=== PATIENT | male | born 1990 | race Caucasian/White ===

== ENCOUNTER 2017-02-02 21:43 | Emergency (ER) | payer OTHER ==
--- NOTE | 2017-02-02 22:41 | C.PDOC ---
History Of Present Illness 26 y/o M c no PMHx p/w episodes of dyspnea, chest pain, palpitations, hand/foot/ facial numbness that have been occurring almost daily x 2 weeks. Patient was seen in ED in [place], [place] and had negative EKG and labs and sent home. Since then , patient has seen PMD multiple times and given Xanax but symptoms have continued. Patient denies fever, chills, abdominal pain, dysuria, weakness. Time Seen by Provider: 02/02/17 22:06 Chief Complaint (Nursing): Chest Pain Past Medical History Vital Signs: Last Vital Signs Temp 99.3 F 02/02/17 21:56 Pulse 88 02/02/17 22:30 Resp 26 H 02/02/17 21:56 BP 136/78 02/02/17 21:56 Pulse Ox 98 02/02/17 22:46 - Medical History PMH: Anxiety, Asthma Family History: States: No Known Family Hx - Social History Hx Tobacco Use: No Hx Alcohol Use: Yes Hx Substance Use: No - Immunization History Hx Tetanus Toxoid Vaccination: Yes Hx Influenza Vaccination: No Hx Pneumococcal Vaccination: No Review Of Systems Except As Marked, All Systems Reviewed And Found Negative. Constitutional: Negative for: Fever Gastrointestinal: Negative for: Abdominal Pain Physical Exam - Physical Exam Appears: No Acute Distress Skin: Normal Color Head: Atraumatic, Normacephalic Eye(s): bilateral: PERRL Oral Mucosa: Moist Throat: No Erythema, No Exudate Neck: No Midline Cervical Tenderness, Supple Chest: No Deformity, No Tenderness Cardiovascular: Rhythm Regular, Other (tachycardic) Respiratory: Normal Breath Sounds Gastrointestinal/Abdominal: Soft, No Tenderness Back: No CVA Tenderness, No Vertebral Tenderness Extremity: No Tenderness, No Swelling Pulses: Left Radial: Normal, Right Radial: Normal Neurological/Psych: Normal Speech, Normal Cognition ED Course And Treatment - Laboratory Results Result Diagrams: 02/02/17 22:55 02/02/17 22:55 O2 Sat by Pulse Oximetry: 98 Medical Decision Making Medical Decision Making: Most likely differential diagnosis is anxiety attacks. Patient has been evaluated multiple times; therefore will evaluate further with labs, imaging, rule out PE, drug screen. I informed patient that in absence of any emergently life threatening findings today, patient will require follow up with Dr. Jackson for further management. IMPRESSION: No aneurysm, dissection or pulmonary embolus, no focal pneumonia Patient in ED in no distress and with normal vital signs. Will discharge home, f /u Dr. Jackson. Disposition - Disposition Disposition: HOME/ ROUTINE Disposition Time: 00:36 Condition: STABLE Instructions: Panic Attack (ED) Forms: [facility] ([place]) - Clinical Impression Clinical Impression: Panic attack
[2017-02-02 22:58] LABS: BASO % 0.3 % (0.0-2.0); EOS # 0.1 K/uL (0.0-0.7); EOS % 0.7 % (0.0-4.0); HEMOGLOBIN 15.8 g/dL (12.0-18.0); LYMPH # 3.2 K/uL (1.0-4.3); LYMPH % 30.9 % (20.0-40.0); MEAN CELL VOLUME 85.8 fL (80.0-94.0); MEAN CORPUSCULAR HEMOGLOBIN 29.9 pg (27.0-31.0); MEAN CORPUSCULAR HGB CONC 34.8 g/dL (33.0-37.0); MEAN PLATELET VOLUME 9.2 fL (7.2-11.7); MONO # 0.5 K/uL (0.0-0.8); MONO % 5.1 % (0.0-10.0); NEUT # 6.4 K/uL (1.8-7.0); NRBC % 0.1 % (0.0-2.0); RBC 5.28 Mil/uL (4.40-5.90); RED CELL DISTRIBUTION WIDTH 12.8 % (11.5-14.5); WHITE BLOOD COUNT 10.2 K/uL (4.8-10.8)
[2017-02-02] MEDS ORDERED: Iodixanol 320 MG/ML 100 ML BOTTLE IV ONE (23:06)
[2017-02-02 23:10] LABS: ALBUMIN 4.6 g/dL (3.5-5.0); ALT/SGPT 45 U/L (21-72); AST/SGOT 31 U/L (17-59); BLOOD UREA NITROGEN 13 mg/dL (9-20); CALCIUM 9.2 mg/dl (8.6-10.4); GFR AFRICAN-AMERICAN > 60; GFR NON-AFRICAN AMERICAN > 60
[2017-02-02 23:11] LABS: ALB/GLOB RATIO 1.2 (1.0-2.1)
[2017-02-02 23:48] LABS: BARBITURATES, UR NEGATIVE (NEGATIVE); BENZODIAZEPINES, UR NEGATIVE (NEGATIVE); OPIATES, UR NEGATIVE (NEGATIVE); PHENCYCLIDINE, UR NEGATIVE (NEGATIVE)
--- NOTE | 2017-02-03 00:36 | CT ---
EXAM: CT Angiography Chest With Intravenous Contrast EXAM DATE/TIME: 02/02/2017 10:35 PM CLINICAL HISTORY: 26 years old, male; Pain; Chest pain; Additional info: Dyspnea, chest pain, palpitations TECHNIQUE: Axial computed tomographic angiography images of the chest with intravenous contrast using pulmonary embolism protocol. All CT scans at this facility use one or more dose reduction techniques, viz.: automated exposure control; ma/kV adjustment per patient size (including targeted exams where dose is matched to indication; i.e. head); or iterative reconstruction technique. MIP reconstructed images were created and reviewed. Coronal and sagittal reformatted images were created and reviewed. CONTRAST: 100 mL of [id number] administered intravenously. COMPARISON: There are no prior studies for comparison. FINDINGS: Heart, aorta and Pulmonary arteries: Heart size is normal. There is no pericardial effusion.There is no aneurysm or dissection. The there is perfusion of the 3 arch vessels.There are no pulmonary emboli. Lungs and Pleural spaces: Trachea and main bronchi are patent.There is no pneumothorax. Lungs are clear. There are no effusions. Mediastinum: There are no pathologically enlarged mediastinal or hilar nodes. The esophagus is unremarkable. Thyroid: Thyroid is not optimally demonstrated. Bones/joints: There are no acute osseous abnormalities. Soft tissues: unremarkable Upper abdomen: There are no acute abnormalities in the visualized portion of the abdomen. IMPRESSION: No aneurysm, dissection or pulmonary embolus, no focal pneumonia
[2017-02-03 01:27] VITALS: RESP 20; TEMP 98.9
[2017-02-03 01:29] VITALS: BP 128/68; PULSE 90; O2SAT 99
--- NOTE | 2017-02-06 14:25 | CARD ---
APPROVED REPORT EKG Measurement Heart [id number] <Conclusion> Sinus rhythm with marked sinus arrhythmia with short CA Nonspecific ST and T wave abnormality Abnormal ECG
== END 2017-02-03 01:27 | disposition home or self-care (01) ==
LOC: C.ER 21:43
DX: F41.0 Panic disorder [episodic paroxysmal anxiety] (principal)
CPT/HCPCS: 71275; 80053; 80324; 80345; 80346; 80349; 80353; 80358; 80361; 83992; 84484; 85025; 99285; Q9967

== ENCOUNTER 2017-03-22 06:44 | Day surgery (SDC) | payer OTHER ==
[2017-03-21 09:54] VITALS: BMI 28.3
[2017-03-22] MEDS ORDERED: Midazolam 2 MG/2 ML VIAL ONE (07:59)
[2017-03-22] MEDS ORDERED: Propofol 10 mg/ml Inj (20 ML) ONE (08:00)
[2017-03-22] MEDS ORDERED: Lactated Ringer's 500 ML IV SCH (08:15)
[2017-03-22] MEDS ORDERED: Lidocaine Hydrochloride 5 ML INJ ONE (08:17)
[2017-03-22] MEDS ORDERED: Lactated Ringer's 1,000 ML IV ONE (08:17)
[2017-03-22 09:08] VITALS: O2SAT 99
[2017-03-22 09:53] VITALS: BP 118/71; PULSE 74; RESP 16; TEMP 97.6
== END 2017-03-22 09:45 | disposition home or self-care (01) ==
LOC: C.ENDO 06:44
PROVIDERS: ATTEND Internal Medicine Gastroenterology
DX: K29.70 Gastritis, unspecified, without bleeding (principal); F41.9 Anxiety disorder, unspecified; J45.909 Unspecified asthma, uncomplicated; Z72.0 Tobacco use; K31.9 Disease of stomach and duodenum, unspecified
CPT/HCPCS: 43239; 88305; 88313; 88342; J2250; J2704; J7120